=== PATIENT | female | born 1965 | race African-American/Black ===

== ENCOUNTER 2016-09-04 05:40 | Day surgery (SDC) | payer OTHER ==
[~2016-09-04] VITALS: Ht 170.2 cm; Wt 117.6 kg
[~2016-09-04 05:40] MED LIST: GARLIC1 EACH PO; HYDROCHLOROTHIA25 MG PO; LOSARTAN POTAS100 MG PO; METOPROLOL TART50 MG PO; POTASSIUM CHLO10 ME1 PO; VITAMIN C500 M1 PO; VITAMIN D31000 UNI1 PO; VITAMIN E400 UNI1 PO
--- NOTE | 2016-09-04 07:25 | NUR ---
THIS PT VERY MUCH WELCOMING OF PRAYER. HER SISTER IS WITH HER AND VERY SUPPORTIVE. 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 SHE IS IN GOOD ATTITUDE AND ANXIOUS TO GET THIS PROCEDURE DONE AND GET BACK TO WORK AND LIVING LIFE WITHOUT THIS PROBLEM BEING THE CENTER OF ATTENTION.
--- NOTE | 2016-09-04 09:09 | NUR ---
[facility] 6L VIA MASK.
[2016-09-04] MEDS ORDERED: NORCO 5-325 TA1 EACH PO (10:31)
--- NOTE | 2016-09-04 10:52 | NUR ---
HAS TAKEN [facility]ERS JELLO WATER AMB TO BR AMB WITH LIMP BUT DID WELL. WANTS TO GO HOME.
--- NOTE | 2016-09-06 07:07 | OR ---
[facility] [address], [place] [address] Signed DATE OF SERVICE: 09/04/2016 PREOPERATIVE DIAGNOSIS: Internal derangement, right knee. POSTOPERATIVE DIAGNOSIS: Lateral meniscal tear. PROCEDURE: Knee arthroscopy with partial lateral meniscectomy. SURGEON: Dr. Marie. ANESTHESIA: General. SPECIMENS: There were no specimens. COMPLICATIONS: None. TOURNIQUET TIME: About 25 minutes. DESCRIPTION OF PROCEDURE: The patient was taken the operating room, placed on table in supine position. After anesthesia was induced, airway secured. The patient was positioned, prepped and draped in a routine sterile fashion. The leg was exsanguinated with an Esmarch bandage. Pneumatic tourniquet about the thigh was inflated to 300 mmHg pressure. A Super Roll medial outflow portal was created, and the outflow cannula introduced. An anterolateral arthroscopy portal was created, and the arthroscope was introduced. Arthroscopy, the suprapatellar pouch was unremarkable. Patellofemoral joint showed some minor areas of grade 1 to grade 2 chondral change of the trochlea and the patella. The medial recess was unremarkable as was the medial compartment. A nerve hook was introduced through an anteromedial portal created with transillumination and localization with a spinal needle. Careful probing of the meniscus did not reveal any abnormalities. Intercondylar notch revealed an i n tact ACL and PCL. The lateral compartment showed a complex tear of the lateral meniscus. A basket forceps was introduced through the anteromedial portal, the meniscal tear was completed and then debrided back to a stable margin with the motorized shaver. T he lateral recess was unremarkable. The knee was copiously irrigated and drained, and the portals were closed. A sterile dressing was applied, and the patient was awakened to the recovery room where she arrived in stable condition. Counts were correct, an d antibiotic protocols were followed. Electronically Signed By: CESAR MARIE MD 09/06/16 0707 PATIENT NAME: IGLESIA GEE OPERATIVE REPORT DATE OF : 61 PHYSICIAN: CESAR MARIE MD REPORT #: [id number] REPORT IS CONFIDENTIAL AND NOT TO BE RELEASED WITHOUT AUTHORIZATION [address] [address] Signed Cesar Marie MD WFB/Modl /[id number] Electronically Signed By: CESAR MARIE MD 09/06/16 07 PATIENT NAME: IGLESIA GEE OPERATIVE REPORT DATE OF : 61 PHYSICIAN: CESAR MARIE MD REPORT #: [id number] REPORT IS CONFIDENTIAL AND NOT TO BE RELEASED WITHOUT AUTHORIZATION
== END 2016-09-04 10:45 | disposition home or self-care (01) ==
LOC: OPS 05:40 → DS 05:40 → OPS 06:45 → DS 06:45 → OPS 08:15
PROVIDERS: Orthopaedic Surgery
PROC: 0SBC4ZZ Excision of Right Knee Joint, Percutaneous Endoscopic Approach (ICD-10-PCS; principal; 2016-09-04 08:15)
DX: M23.300 Other meniscus derangements, unspecified lateral meniscus, right knee (principal); I10 Essential (primary) hypertension; Z88.5 Allergy status to narcotic agent
CPT/HCPCS: 01400; J0690; J1100; J1885; J2250; J2405; J2704; J3010; J7120